=== PATIENT | female | born 1975 | race Caucasian/White ===

== ENCOUNTER → 2020-02-18 14:16 | Outpatient (BNVA) | payer BC, OTHER, SELFPAY | PROVIDERS: Family Provider Family Medicine; Referring Provider Family Medicine; Visit Provider Dermatology | DX: L82.1 Other seborrheic keratosis (principal); L81.4 Other melanin hyperpigmentation | CPT/HCPCS: 99203 ==

== ENCOUNTER → 2023-02-27 13:22 | Outpatient (BNVA) | payer BC, SELFPAY | PROVIDERS: Family Provider Family Medicine; PCP Family Medicine; Visit Provider Family Medicine | DX: I10 Essential (primary) hypertension (principal); E03.9 Hypothyroidism, unspecified; Z13.6 Encounter for screening for cardiovascular disorders | CPT/HCPCS: 80053; 80061; 84443; 85025 ==

== ENCOUNTER → 2023-03-21 13:55 | Outpatient (BNVA) | payer BC, SELFPAY | PROVIDERS: Family Provider Family Medicine; PCP Family Medicine; Visit Provider Family Medicine | DX: D50.9 Iron deficiency anemia, unspecified (principal); I10 Essential (primary) hypertension | CPT/HCPCS: 82607; 82728; 82746; 83550; 85025; 85045 ==

== ENCOUNTER → 2024-08-11 11:53 | Outpatient (BNVA) | payer OTHER, BC, SELFPAY | PROVIDERS: Family Provider Family Medicine; PCP Family Medicine; Visit Provider Family Medicine | DX: M35.00 Sjogren syndrome, unspecified (principal); D50.9 Iron deficiency anemia, unspecified | CPT/HCPCS: 85025 ==

== ENCOUNTER → 2024-10-06 13:54 | Outpatient (BNVA) | payer OTHER, BC, SELFPAY | PROVIDERS: Family Provider Family Medicine; PCP Family Medicine; Visit Provider Family Medicine | DX: E04.1 Nontoxic single thyroid nodule (principal); M35.00 Sjogren syndrome, unspecified; R20.0 Anesthesia of skin; M79.10 Myalgia, unspecified site; M25.50 Pain in unspecified joint; I88.9 Nonspecific lymphadenitis, unspecified; E03.9 Hypothyroidism, unspecified; M19.90 Unspecified osteoarthritis, unspecified site | CPT/HCPCS: 80053; 82306; 82607; 84439; 84443; 84481; 84482; 85025; 85651; 86140; 86160; 86162; 86235; 86255; 86376 ==